=== PATIENT | female | born 1995 | race Caucasian/White ===

== ENCOUNTER 2017-06-16 16:25 | Emergency (ER) | payer OTHER, SELFPAY | END 2017-06-16 17:31 | disposition home or self-care (01) | PROVIDERS: Family Provider Emergency Medicine | DX: J10.00 Influenza due to other identified influenza virus with unspecified type of pneumonia (principal); H66.003 Acute suppurative otitis media without spontaneous rupture of ear drum, bilateral | CPT/HCPCS: 87804; 87880; 99201 ==

== ENCOUNTER 2017-06-18 22:50 | Emergency (ER) | payer OTHER, SELFPAY | END 2017-06-18 23:37 | disposition home or self-care (01) | PROVIDERS: Emergency Provider Emergency Medicine; Family Provider Emergency Medicine; Visit Provider Emergency Medicine | DX: J40 Bronchitis, not specified as acute or chronic (principal) | CPT/HCPCS: 99282 ==

== ENCOUNTER 2017-09-29 21:42 | Emergency (ER) | payer OTHER, SELFPAY ==
[2017-09-29 21:50] VITALS: BP 127/70; PULSE 74; RESP 20; TEMP 36.6; O2SAT 99; BMI 28.1
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
[2017-09-29 22:01] LABS: Microscopic, Urine URINE MICROSCOPIC (MICROSCOPIC)
[2017-09-29 22:03] LABS: Appearance,Urine CLOUDY (Clear); Bilirubin,Urine Negative (Negative); Blood, Urine Negative (Negative); Color,Urine YELLOW (Yellow); Glucose,Urine (UA) Negative (Negative); Ketones,Urine Negative (Negative); Leukocyte Esterase,Urine Negative (Negative); Nitrate,Urine Negative (Negative); PH,Urine 7.5 (5.0-8.5); Protein,Urine Negative (Negative); Urobilinogen,Urine 0.2 EU/dl (0.2)
[2017-09-29 22:07] LABS: Urine Pregnancy, HCG Qual. Negative (Negative)
[2017-09-29 22:09] LABS: Amorphous Sediment,Urine 1+ /lpf; Squamous Epithelial Cell,Urine 20-50 #/hpf (0-5)
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
[2017-09-29 23:59] VITALS: BP 121/70; PULSE 78; RESP 20; TEMP 36.6; O2SAT 99
== END 2017-09-30 | disposition home or self-care (01) ==
PROVIDERS: Emergency Provider Emergency Medicine; Family Provider Emergency Medicine; PCP Emergency Medicine
DX: S16.1XXA Strain of muscle, fascia and tendon at neck level, initial encounter (principal); S00.93XA Contusion of unspecified part of head, initial encounter; V53.5XXA Driver of pick-up truck or van injured in collision with car, pick-up truck or van in traffic accident, initial encounter; Y92.414 Local residential or business street as the place of occurrence of the external cause
CPT/HCPCS: 70450; 71046; 72125; 72170; 81001; 81025; 99282

== ENCOUNTER → 2019-07-22 14:09 | Outpatient (CLI) | payer BC, SELFPAY ==
--- NOTE | 2019-07-22 14:09 | US_ITS ---
PROCEDURE: MM DIG MAMM DX UNILAT LT with 3D tomosynthesis CAD CLINICAL INDICATION: breast lump Palpable nodule left breast at 12 o'clock COMPARISON: US BREAST LT COMPLETE from 07/22/2019 TECHNIQUE: Standard CC and MLO images were obtained. R2 CAD reviewed. 3D tomosynthesis performed of the left breast Left breast ultrasound FINDINGS: There is average fibroglandular tissue. No discrete mass or malignant-appearing microcalcification is evident. 3D tomosynthesis is unremarkable. Left breast ultrasound: No cystic or solid lesions evident. IMPRESSION: BI-RAD Category: 1 Negative FOLLOW-UP: Follow-up suggested as clinically warranted. Any palpable nodule should be managed on a clinical basis despite negative mammogram and negative ultrasound. (A letter has been sent to the patient regarding results of the study.) Dictated by: Pa Castañeda MD 07/27/2019 18:01 Electronically signed by Pa Castañeda MD in [place] 07/28/2019 09:27
== END ==
PROVIDERS: PCP Nurse Practitioner Family; Visit Provider Nurse Practitioner Family
DX: N63.20 Unspecified lump in the left breast, unspecified quadrant (principal); N64.4 Mastodynia
CPT/HCPCS: 76641; 77061; 77065; G0279

== ENCOUNTER → 2019-08-28 13:50 | Outpatient (CLI) | payer BC, SELFPAY ==
[2019-08-28 14:07] LABS: Chloride 102 mmol/L (98-107); Potassium 4.4 mmoL/L (3.5-5.1); Sodium 139 mmol/L (136-145)
[2019-08-28 14:09] LABS: Alanine Aminotransferase 21 U/L (12-78); Aspartate Amino Transferase 26 U/L (14-36); Blood Urea Nitrogen 12 mg/dl (7-17); Estimated Glomerular Filt Rate 121 ml/min (>60); GFR (African American) 146 ML/MIN (>60)
[2019-08-28 14:10] LABS: Albumin Level 4.5 g/dl (3.5-5.0); Albumin/Globulin Ratio 1.6 (1.1-1.8); Alkaline Phosphatase 58 U/L (38-126); Anion Gap 14.4 mEq/L (5-15); Bilirubin,Total 0.3 mg/dl (0.2-1.3); Calcium 9.7 mg/dl (8.4-10.2); Carbon Dioxide 27 mmol/L (22.0-30.0); Chol/HDL Ratio 2.7 (1-3.5); Cholesterol 173 mg/dl (140-200); Globulin 2.9 g/dL (1.3-3.2); Glucose 83 mg/dl (74-100); HDL Cholesterol 64 mg/dl (40-60); Total Protein,Serum 7.4 g/dl (6.3-8.2); Triglycerides 149 mg/dl (30-150); VLDL Cholesterol 30 mg/dL (0-40)
[2019-08-28 14:15] LABS: Basophils % 0.5 % (0.1-2.0); Eosinophils # 0.1 K/mm3 (0.0-0.4); Eosinophils % 1.5 % (0.1-12.0); Hematocrit 43.2 % (37.0-47.0); Hemoglobin 14.4 g/dL (12.2-16.2); Lymphocytes # 1.8 K/mm3 (0.7-4.5); Lymphocytes % 23.4 % (10-50); Mean Corpuscular HGB Conc 33.3 g/dL (31.8-35.4); Mean Corpuscular Hemoglobin 30.4 pg (27.0-31.2); Mean Corpuscular Volume 91.3 fl (81-99); Mean Platelet Volume 8.6 fl (7.4-10.4); Monocytes # 0.5 K/mm3 (0.1-1.0); Monocytes % 7.2 % (1.7-9.3); Neutrophils # 5.1 K/mm3 (1.8-7.8); Neutrophils % 67.4 % (37.0-80.0); Platelet Count 270 K/mm3 (142-424); Red Blood Count 4.73 M/mm3 (4.20-5.40); Red Cell Distribution Width 12.2 % (11.5-17.5); White Blood Count 7.5 K/mm3 (4.8-10.8)
[2019-08-28 14:24] LABS: Direct LDL Cholesterol 95.37 mg/dL (100-129)
[2019-08-28 14:28] LABS: T4 (Thyroxine) 7.7 ug/dl (5.53-11.0)
[2019-08-28 14:42] LABS: Thyroid Stimulating Hormone 4.27 uIU/mL (0.465-4.68)
[2019-08-28 15:01] LABS: HCG Qualitative, Serum Negative (Negative)
[2019-08-29 10:17] LABS: Vitamin B12 387 pg/mL (232-1245); Vitamin D 25 Hydroxy 20.2 ng/mL (30.0-100.0)
[2019-08-29 10:18] LABS: Folate 8.3 ng/mL (>3.0)
== END ==
PROVIDERS: Visit Provider Nurse Practitioner Family
DX: L65.9 Nonscarring hair loss, unspecified (principal); R53.83 Other fatigue; E55.9 Vitamin D deficiency, unspecified
CPT/HCPCS: 80053; 80061; 82607; 82652; 82746; 84436; 84443; 84703; 85025

== ENCOUNTER 2020-01-29 15:59 | Emergency (ER) | payer BC, SELFPAY ==
[2020-01-29 16:26] VITALS: BP 141/85; PULSE 98; RESP 18; TEMP 36.8; O2SAT 100; BMI 31.1
--- NOTE | 2020-01-29 16:39 | HMH.EDUTC ---
[facility] [place] Disposition Clinical Impression: Encounter for laboratory testing for COVID-19 virus URI (upper respiratory infection) Qualifiers: URI type: unspecified URI Qualified Code(s): J06.9 - Acute upper respiratory infection, unspecified Disposition: Home, Self-Care Condition on Discharge: Good Instructions: Preventing the Spread of Coronavirus Discharge Instructions, DI for Sinusitis, DI for Cough -- Adult, Sore Throat Additional Instructions: You was given handout with instructions on how to Self Quarantine while awaiting your COVID19 test results and how to Self Isolate if your test results are positive Please follow instructions carefully to help prevent the spread of COVID *Take medication as prescribed Make sure that you are drinking plenty of fluids and getting rest Over the counter Tylenol for fever and pain Return if needed Straight to ER if any life threatening symptoms Call back to the [facility] on Sunday to see if your test results are back and the result Prescriptions: Benzonatate [Tessalon Perle 100mg Cap*] 100 mg PO TID PRN #15 cap PRN Reason: Cough Transmission Status: Pending to [facility] #[id number] Azithromycin [Z-Jose Juan 250mg Tab] 250 mg PO DIRECTED #6 tab Transmission Status: Pending to [facility] #[id number] Referrals: Laura Lizarraga APRN [Primary Care Provider] - As needed Time of Disposition: 16:49 Medical Decision Making - Kenan Inquiry Pt receiving controlled substance: No Kenan was queried for this patient: No Vital Signs: 01/29/20 16:26 Temperature 98.2 F Temperature Source Oral Pulse Rate [Right Brachial] 98 H Respiratory Rate 18 Blood Pressure [Right Arm] 141/85 H Blood Pressure Mean [Right Arm] 103 Blood Pressure Source [Right Arm] Automatic Cuff Blood Pressure Position [Right Arm] Sitting 02 Sat by Pulse Oximetry 100 Oxygen Delivery Method Room Air Orders (Tests/Meds): ORDERS Category Date Time Status SARS-CoV-2, SON Stat Lab 01/29/20 16:21 Received [facility] [place] HPI - General Stated complaint: Covid exposure, Cough, Muscle pain Time Seen by Provider: 01/29/20 16:39 Mode of Arrival: Ambulatory Source of Information: Patient Limitations: No Limitations Description of Symptoms (Recalled from Triage Doc. by RN): PATIENT C/O COUGH, SHORTNESS OF BREATH, AND NAUSEA SINCE YESTERDAY. HER TESTED POSITIVE FOR COVID LAST WEEK HEENT Symptoms (Recalled from RN notes): No Resp Symptoms (Recalled from RN notes): Yes Skin Symptoms (Recalled from RN notes): No MS Symptoms (Recalled from RN notes): No Functional Status (Recalled from RN notes): WNL - History of Present Illness Provider Complaint: Patient states that he tested positive for COVID19 last week and now she is having sinus congestion and drianage, cough, sore throat, feels short of breath after coughing eppisode, body aches, chills and headache and nausea States that she feels like she may have COVID now too so she came in to get tested for it. - Related Data Home Medications Medication Instructions Recorded Confirmed norgestimate-ethinyl estradioL 1 each PO DAILY 01/29/20 01/29/20 [Estarylla 0.25-0.035 mg Tablet] Previous Rx's Medication Instructions Recorded Azithromycin [Z-Jose Juan 250mg Tab] 250 mg PO DIRECTED #6 tab 01/29/20 Benzonatate [Tessalon Perle 100mg 100 mg PO TID PRN #15 cap 01/29/20 Cap*] Allergies Allergy/AdvReac Type Severity Reaction Status Date / Time brompheniramine Allergy Unknown Verified 08/28/19 10:07 [From DIMETAPP (BROMPHENIRAMINE-PPA)] phenylpropanolamine Allergy Unknown Verified 08/28/19 10:07 [From DIMETAPP (BROMPHENIRAMINE-PPA)] - Worker's Comp Is this a Worker's Comp case?: No [facility] History - Hepatitis A Screen Drug use history?: No High risk sexual behaviors?: No History of sexually transmitted infection?: No Currently employed?: No Childcare worker?: No Do you have indoor plumbing?: Yes Do you h
[2020-01-29 16:51] VITALS: BP 141/85; PULSE 98; RESP 18; TEMP 36.8; O2SAT 100
[2020-01-31 09:19] LABS: Covid-19 Nasal PCR Sendout Lex POSITIVE
--- NOTE | 2020-01-31 12:54 | PC.NURSE ---
Chrissy Tapia was notified of pt positive Covid swab by Jorge Blackman rn at approx 0915. Francisco Lizarraga (PCP) was notified at 1120. Francisco lizarraga called and notified pt of positive swab. pt states tested positive last week. no new orders from francisco lizarraga at this time.
== END 2020-01-29 16:56 | disposition home or self-care (01) ==
PROVIDERS: Emergency Provider Nurse Practitioner; PCP Nurse Practitioner Family
DX: Z20.828 Contact with and (suspected) exposure to other viral communicable diseases (principal); J06.9 Acute upper respiratory infection, unspecified; Z88.8 Allergy status to other drugs, medicaments and biological substances; F41.8 Other specified anxiety disorders
CPT/HCPCS: 99201; U0004

== ENCOUNTER → 2020-08-17 16:18 | Outpatient (CLI) | payer BC, SELFPAY ==
[2020-08-17 17:39] LABS: Basophils % 0.3 % (0.1-2.0); Eosinophils # 0.1 K/mm3 (0.0-0.4); Eosinophils % 0.6 % (0.1-12.0); Hematocrit 42.8 % (37.0-47.0); Hemoglobin 13.9 g/dL (12.2-16.2); Lymphocytes # 2.1 K/mm3 (0.7-4.5); Lymphocytes % 23.3 % (10-50); Mean Corpuscular HGB Conc 32.6 g/dL (31.8-35.4); Mean Corpuscular Hemoglobin 30.5 pg (27.0-31.2); Mean Corpuscular Volume 93.7 fl (81-99); Mean Platelet Volume 8.5 fl (7.4-10.4); Monocytes # 0.5 K/mm3 (0.1-1.0); Neutrophils # 6.1 K/mm3 (1.8-7.8); Neutrophils % 69.8 % (37.0-80.0); Platelet Count 244 K/mm3 (142-424); Red Blood Count 4.57 M/mm3 (4.20-5.40); Red Cell Distribution Width 12.4 % (11.5-17.5); White Blood Count 8.8 K/mm3 (4.8-10.8)
[2020-08-17 18:19] LABS: Alanine Aminotransferase 16 U/L (12-78); Albumin Level 4.8 g/dl (3.5-5.0); Albumin/Globulin Ratio 1.5 (1.1-1.8); Alkaline Phosphatase 57 U/L (38-126); Aspartate Amino Transferase 22 U/L (14-36); Bilirubin,Total 0.5 mg/dl (0.2-1.3); Blood Urea Nitrogen 16 mg/dl (7-17); Calcium 9.8 mg/dl (8.4-10.2); Carbon Dioxide 25 mmol/L (22.0-30.0); Chloride 106 mmol/L (98-107); Estimated Glomerular Filt Rate 148 ml/min (>60); GFR (African American) 179 ML/MIN (>60); Globulin 3.2 g/dL (1.3-3.2); Glucose 86 mg/dl (74-100); Sodium 140 mmol/L (136-145)
[2020-08-17 18:35] LABS: 25-OH Vitamin D, Total 27.4 ng/mL (30-100)
[2020-08-17 18:37] LABS: T4 (Thyroxine) 8.2 ug/dl (5.53-11.0)
[2020-08-17 18:50] LABS: Thyroid Stimulating Hormone 0.49 uIU/mL (0.465-4.68)
[2020-08-19 09:33] LABS: Testosterone,Total 36 ng/dL (8-48)
[2020-08-19 11:28] LABS: FSH 3.2 mIU/mL (.); LH 15.2 mIU/mL (.)
[2020-08-22 20:20] LABS: Estrogen 194 pg/mL (.)
== END ==
PROVIDERS: Visit Provider Nurse Practitioner Family
DX: R53.83 Other fatigue (principal); E55.9 Vitamin D deficiency, unspecified
CPT/HCPCS: 80053; 82306; 82672; 83001; 83002; 84403; 84436; 84443; 85025

== ENCOUNTER → 2021-08-03 10:01 | Outpatient (CLI) | payer BC, SELFPAY ==
--- NOTE | 2021-08-03 10:04 | US_ITS ---
FINAL REPORT CLINICAL HISTORY: .fna rt thyroid nodule jayden lewis performed FINDINGS: Ultrasound-guided thyroid biopsy History: Right thyroid nodule Attending radiologist: Dr. Patten Physician hospital aides and assistants teacher: Jayden Charlton PA-C Procedure: After informed consent was obtained and proper timeout procedure performed, the patient was placed in the supine position. Localization imaging of the right lobe of the thyroid demonstrated a 1.4 cm nodule. The patient's right neck was prepped and draped in a sterile manner and the skin was anesthetized with 1% lidocaine. A total of 3 fine-needle aspirations were performed. The patient tolerated the procedure well there were no complications. IMPRESSION: Technically successful ultrasound-guided FNA of the thyroid. Images reviewed, interpreted and dictated by Dr. Patten. Transcribed by Jayden Charlton PA-C Reviewed, Interpreted and Dictated by Lázaro Patten III, MD Transcribed by DANY Do Authenticated by Lázaro Patten III, MD on 08/08/2021 09:46:23 AM [facility]
== END ==
PROVIDERS: PCP Family Medicine; Visit Provider Student in an Organized Health Care Education/Training Program
DX: E04.1 Nontoxic single thyroid nodule (principal)
CPT/HCPCS: 10005